=== PATIENT | male | born 1965 | race Caucasian/White ===

== ENCOUNTER → 2016-12-08 | Outpatient (CLI) | payer BC ==
--- NOTE | 2016-12-08 09:25 | DI ---
LEFT FOOT, 12/08/2016 7:50 AM: Clinical History: Left foot pain. Previous Exam: None at this facility. 3 views are submitted. There is diffuse osteoporosis. There is soft tissue swelling over the dorsal a spect of the metatarsal bones and there are nondisplaced fractures involving the first and fifth meta tarsal bones with fractures involving the distal heads of the second through third metatarsals if the re is no history of a significant injury, then this would represent fragility fractures indicating se iliana osteoporosis. The remainder of the examination is normal. Readin. There are fractures of the midshaft of the first metatarsal bone and the distal heads of the four th and fifth metatarsal bones. 2. There is osteoporosis and if there is no history of significant trauma, then these fractures woul d represent fragility fractures secondary to severe osteoporosis.
== END ==
LOC: MOB RAD 07:51
PROVIDERS: ATTEND Podiatrist Foot & Ankle Surgery
DX: M79.672 Pain in left foot (principal); S92.315A Nondisplaced fracture of first metatarsal bone, left foot, initial encounter for closed fracture; S92.325A Nondisplaced fracture of second metatarsal bone, left foot, initial encounter for closed fracture; S92.345A Nondisplaced fracture of fourth metatarsal bone, left foot, initial encounter for closed fracture; X50.1XXA Overexertion from prolonged static or awkward postures, initial encounter
CPT/HCPCS: 73630

== ENCOUNTER → 2016-12-15 | Outpatient (CLI) | payer BC ==
--- NOTE | 2016-12-15 11:01 | DI ---
XR FOOT COMPLETE MIN 3VW,12/15/2016 8:44 AM: Clinical History: Closed, nondisplaced fracture of the metatarsal of left foot Previous Exam: December 08, 2016 Findings: 3 views of the left foot are obtained in plaster, and demonstrate a comminuted fracture of the distal second fracture. There is also fracture of the fourth and third metatarsal necks. There is also a fr acture involving the lateral surface of the first metatarsal. Overlying plaster limits fine bony deta il. Impression: Healing fractures as above.
== END ==
LOC: MOB RAD 08:44
PROVIDERS: ATTEND Podiatrist Foot & Ankle Surgery
DX: S92.325D Nondisplaced fracture of second metatarsal bone, left foot, subsequent encounter for fracture with routine healing (principal); S92.335D Nondisplaced fracture of third metatarsal bone, left foot, subsequent encounter for fracture with routine healing; S92.345D Nondisplaced fracture of fourth metatarsal bone, left foot, subsequent encounter for fracture with routine healing; S92.315D Nondisplaced fracture of first metatarsal bone, left foot, subsequent encounter for fracture with routine healing
CPT/HCPCS: 73630

== ENCOUNTER → 2017-01-04 | Outpatient (CLI) | payer BC ==
--- NOTE | 2017-01-04 21:09 | DI ---
LEFT FOOT, 01/04/2017 2:01 PM: Clinical History: Closed displaced fracture of the second metatarsal bone of the left foot with routi ne healing. Previous Exam: 12/08/2016; 12/15/2016. 3 partial weight-bearing views are submitted. There is diffuse osteoporosis similar to the initial ex amination. Nondisplaced fractures are present in the midshaft of the first metatarsal bone and at the base of the distal heads of the second through fifth metatarsal bones. No significant callus formati on has developed. The presence of multiple fractures is unusual unless this patient sustained substan tial trauma to the foot. If the patient initially sustained only minor or modest trauma as the cause of this injury, then these may represent true fragility fractures indicating the patient has severe o steoporosis. Readin. There are fractures of the first through fifth metatarsal bones as above with no significant call us formation identified at this time. 2. Osteoporosis. If this patient did not sustain significant trauma to cause these fractures, then o ne must consider the possibility that these represent fragility fractures indicating the patient has severe osteoporosis.
== END ==
LOC: RAD 14:04
PROVIDERS: ATTEND Podiatrist Foot & Ankle Surgery
DX: S92.322D Displaced fracture of second metatarsal bone, left foot, subsequent encounter for fracture with routine healing (principal)
CPT/HCPCS: 73630

== ENCOUNTER → 2017-02-08 | Outpatient (CLI) | payer BC ==
--- NOTE | 2017-02-08 10:34 | DI ---
LEFT FOOT, 02/08/2017 9:21 AM: Clinical History: Closed fractures of the metatarsal bones. Previous Exam: 12/08/2016; 12/15/2016; 01/04/2017. 3 views are submitted. The fractures of the first through fourth metatarsal bones are again visualize d without significant periosteal new bone formation. Only minimal periosteal new bone formation is se en toward the base of the first metatarsal bone and probably also at the site of the second metatarsa l bone. There has been progressive osteoporotic change involving the metatarsophalangeal joints and t he phalanges along with persistent soft tissue swelling dorsally. If this patient is experiencing mor e pain than expected, then these changes may reflect reflex sympathetic dystrophy. Readin. The fractures of the first through fourth metatarsal bones show no significant interval change ex cept for minimal periosteal new bone formation at the fracture site toward the base of the first meta tarsal bone and questionably involving the second metatarsal bone. There has been no change in alignm ent and position. 2. Progressive osteoporotic changes are noted at the metatarsophalangeal joints as well as in the ph alanges along with persistent soft tissue swelling. See above.
== END ==
LOC: MOB RAD 09:22
PROVIDERS: ATTEND Podiatrist Foot & Ankle Surgery
DX: S92.315D Nondisplaced fracture of first metatarsal bone, left foot, subsequent encounter for fracture with routine healing (principal); S92.322D Displaced fracture of second metatarsal bone, left foot, subsequent encounter for fracture with routine healing; S92.335G Nondisplaced fracture of third metatarsal bone, left foot, subsequent encounter for fracture with delayed healing; S92.345G Nondisplaced fracture of fourth metatarsal bone, left foot, subsequent encounter for fracture with delayed healing
CPT/HCPCS: 73630

== ENCOUNTER → 2017-03-08 | Outpatient (CLI) | payer BC | LOC: MOB RAD 09:09 | PROVIDERS: ATTEND Podiatrist Foot & Ankle Surgery | DX: S92.312D Displaced fracture of first metatarsal bone, left foot, subsequent encounter for fracture with routine healing (principal); S92.325D Nondisplaced fracture of second metatarsal bone, left foot, subsequent encounter for fracture with routine healing; S92.335D Nondisplaced fracture of third metatarsal bone, left foot, subsequent encounter for fracture with routine healing; S92.345D Nondisplaced fracture of fourth metatarsal bone, left foot, subsequent encounter for fracture with routine healing; E10.8 Type 1 diabetes mellitus with unspecified complications; M80.87 Other osteoporosis with current pathological fracture, ankle and foot | CPT/HCPCS: 73630 ==

== ENCOUNTER → 2017-04-06 | Outpatient (CLI) | payer BC ==
--- NOTE | 2017-04-06 10:58 | DI ---
HISTORY: Closed nondisplaced fracture of the 2nd metatarsal bone of the left foot. COMPARISON: None available. FINDINGS: Examination of the left foot reveals healing nondisplaced fracture of the neck and distal shaft of the second metatarsal with no significant displacement. There is also a linear transverse i ncomplete fracture of the mid shaft of the first metatarsal. IMPRESSION: 1. Healing nondisplaced fracture of the neck and distal shaft of the second metatarsal with no signif icant displacement. There is also a linear transverse incomplete fracture of the mid shaft of the fi rst metatarsal. Clinical correlation is requested. NOTIFICATION: The above findings were phoned to Tete Fagan in the ER Department on 04/06/2017 at 01:10 PM EST.
== END ==
LOC: MOB LAB 09:01
PROVIDERS: ATTEND Podiatrist Foot & Ankle Surgery
DX: S92.315D Nondisplaced fracture of first metatarsal bone, left foot, subsequent encounter for fracture with routine healing (principal); S92.325D Nondisplaced fracture of second metatarsal bone, left foot, subsequent encounter for fracture with routine healing; S92.335D Nondisplaced fracture of third metatarsal bone, left foot, subsequent encounter for fracture with routine healing
CPT/HCPCS: 73630